=== PATIENT | male | born 1985 | race Caucasian/White ===

== ENCOUNTER 2016-11-14 13:36 | Emergency (ER) | payer OTHER ==
[~2016-11-14] VITALS: Ht 180.3 cm; Wt 120.2 kg
[~2016-11-14 13:36] MED LIST: DOXYCYCLINE HY100 M4 PO
[2016-11-14 13:39] VITALS: BP 139/80
[2016-11-14] MEDS ORDERED: DICLOFENAC SODI75 M2 PO (16:26)
--- NOTE | 2016-11-14 16:27 | ED UPPER/LOWER EXTREMITY COMPL ---
History of Present Illness General Chief Complaint: Upper Extremity Injury Stated Complaint: RT TRICEP PAIN Source: patient Exam Limitations: no limitations Vital Signs & Intake/Output Vital Signs & Intake/Output Vital Signs Date Time Temp Pulse Resp B/P B/P Pulse O2 O2 Flow FiO2 Mean Ox Delivery Rate 11/14 1339 98.2 73 20 139/80 97 Room Air Allergies Coded Allergies: No Known Allergies (01/18/16) Reconcile Medications Diclofenac Sodium 75 MG TABLET. 1 TAB PO BID PRN pain/inflammation Doxycycline Hyclate 100 MG TABLET 1 TAB PO BID [place] Spotted Fever Doxycycline Hyclate 100 MG TABLET 1 TAB PO BID [place] Spotted Fever Triage Note: STATES HE JUST CAME FROM THE GYM AND HE THINKS HE TORE HIS RIGHT TRICEP. Triage Nurses Notes Reviewed? yes HPI: Patient is a 31-year-old male presents complaining of possible triceps tendon rupture. Patient reports he was at the gym today when he felt to pulls in his right triceps. Pain is mild, worsens with movement and palpation. Patient is right-hand dominant. Patient feels swelling in his right triceps. Patient was administered ibuprofen trash with mild improvement. Patient denies numbness. Past History Travel History Traveled to [place] past 21 day No Medical History Any Pertinent Medical History? see below for history Neurological: NONE EENT: allergies Cardiovascular: NONE Respiratory: NONE Gastrointestinal: NONE Hepatic: NONE Renal: NONE Musculoskeletal: NONE Psychiatric: NONE Endocrine: NONE Blood Disorders: NONE Cancer(s): NONE BUSINESS ADVISOR/Reproductive: NONE History of MRSA: No History of VRE: No History of CDIFF: No Surgical History Surgical History: non-contributory Psychosocial History Who do you live with Significant Other What is your primary language Swiss Tobacco Use: Never used ETOH Use: occasional use Illicit Drug Use: denies illicit drug use Family History Hx Contributory? No Review of Systems Review of Systems Constitutional: Denies: chills, fever. Cardiovascular: Denies: chest pain. Gastrointestinal/Abdominal: Denies: abdominal pain. Musculoskeletal: Reports: see HPI. Denies: back pain, neck pain. Skin: Reports: no symptoms. Neurological/Psychological: Denies: numbness, paresthesia. Hematologic/Endocrine: Denies: bruising, bleeding. Immunological: Denies: splenectomy. Physical Exam Physical Exam General Appearance: well developed/nourished, alert, awake Head: atraumatic, normal appearance Eyes: Bilateral: normal appearance. Ears, Nose, Throat: hearing grossly normal Neck: normal inspection, supple, full range of motion Cardiovascular/Respiratory: no respiratory distress Peripheral Pulses: 2+ radial (R) Back: normal inspection, normal range of motion Elbow Right: swelling right distal/posterior upper arm with mild bogginess to the area. Full flexion of elbow actively. extension to approximately 165 degrees actively. Hand Right: normal inspection, normal range of motion Neurologic/Tendon: normal sensation Skin: intact, normal color, warm/dry Progress Differential Diagnosis: fracture, sprain, tendon injury Plan of Care: Orders Procedure Date/time Status Durable Medical Equipment 11/14 1624 Active Exam consistent with triceps muscle/tendon injury. No bony tenderness. X-ray deferred secondary to exam. Patient placed in sling by nursing staff and will follow up with orthopedics for further evaluation. (ADAN BOWERS,ONI) Departure Departure Disposition: HOME OR SELF CARE Condition: Stable Clinical Impression Primary Impression: Triceps tendon rupture Qualifiers: Encounter type: initial encounter Laterality: right Qualified Code: S46.311A - Strain of muscle, fascia and tendon of triceps, right arm, initial encounter Referrals: KRYSTLE BENSON,TOSHIA Farfan PATIENT HAS NO PRIMARY CARE DR (PCP/Family) Additional Instructions: Follow up with Dr. Santana(orthopedist) for further evaluation. Call today for appointment to be seen within 1 week. Wear sling for support. Return to the ER if numbness, pain uncontrollable or worsening of symptoms. Departure Forms: Customer Survey General Discharge Information Prescriptions: Current Visit Scripts Diclofenac Sodium 1 TAB PO BID PRN pain/inflammation #15 TAB
== END 2016-11-14 16:35 ==
LOC: ERH 13:36
DX: S46.311A Strain of muscle, fascia and tendon of triceps, right arm, initial encounter (principal); X50.0XXA Overexertion from strenuous movement or load, initial encounter; Y93.B3 Activity, free weights; Y92.39 Other specified sports and athletic area as the place of occurrence of the external cause
CPT/HCPCS: 99282

== ENCOUNTER → 2016-11-19 | Day surgery (SDC) | payer OTHER ==
[~2016-11-19] MED LIST changes: +DICLOFENAC SODI75 M2 PO
--- NOTE | 2016-11-19 18:34 | Operative Report ---
Operative/Inv Procedure Report Surgery Date: 11/19/16 Name of Procedure: Right elbow triceps repair Pre-Operative Diagnosis: Right triceps rupture Post-Operative Diagnosis: Right triceps rupture Estimated Blood Loss: scant Surgeon/Key Punch Teacher: MARIA INES BENSON,ELISSA Darby Anesthesia: laryngeal mask airway, block Complications: none Condition: stable to PACU Operative Indication: This is a 31-year-old male who is very active with weightlifting. The patient injured his right elbow. He was initially seen by another physician and surgery was recommended. MRI showed a high-grade partial tear of the triceps tendon. Risks and benefits of the procedure were discussed with the patient at length. Risks include but are not limited to nerve damage, muscle damage, infection, blood loss, blood clots, pulmonary embolus, and even . The patient agreed to the above risks and elected to proceed with surgery. Operative/Procedure Note Note: The patient was placed supine on the operating room table. A tourniquet was applied. The upper extremity was prepped and draped in normal sterile fashion. A timeout was performed before the incision. The site marking was visualized before incision. After the arm was prepped and draped, an Esmarch was used to exsanguinate the extremity. The tourniquet was inflated. An incision was made longitudinally just lateral to the tip of the olecranon. Skin flaps were developed. Care was taken to protect the ulnar nerve. The triceps tendon was exposed. There was a retracted tear of the central third of the triceps tendon. Hematoma was evacuated. A suture was used in a Krakw fashion to provide a traction stitch for later reduction. A 2.9 mm osteo-Raptor anchor was then placed at the proximal footprint of the triceps. The 4 suture limbs were then passed through the triceps tendon. Tourniquet was then let down. With the triceps tendon held in reduction the suture limbs were tied which helped to reapproximate the triceps tendon to the bone. Next 2 footprint anchors were drilled and placed distal to the triceps insertion. The sutures from the reduction stitch as well as from the anchor sutures were then crisscrossed over the top and fixed in the distal footprint anchors. The retinaculum was then fixed side to side. Excess sutures cut. The wound was copiously irrigated. The wound was copiously irrigated. The skin was closed with 2-0 Vicryl suture and a running subcuticular 3-0 Prolene. Steri-Strips were applied. A dry sterile dressing was applied. A posterior splint was applied. This was then transferred to PACU in stable condition.
== END ==
LOC: STS 07:00
DX: S46.311A Strain of muscle, fascia and tendon of triceps, right arm, initial encounter (principal); X50.0XXA Overexertion from strenuous movement or load, initial encounter; K21.9 Gastro-esophageal reflux disease without esophagitis
CPT/HCPCS: J0131; J0690; J1100; J1885; J2250; J2405